=== PATIENT | female | born 1990 | race Caucasian/White ===

== ENCOUNTER 2023-11-23 01:39 | Inpatient (IN) ==
[2023-11-23] MEDS ORDERED: LIDOCAINE 1% LOCAL 20 ML VIAL INFIL PRN (02:23)
[2023-11-23 02:58] LABS: Hematocrit (blood only) 40.3 % (37.0-47.0); Hemoglobin 13.4 g/dl (12.0-16.0); Mean Corpuscular Hemoglobin 30.5 pg (25.0-34.0); Mean Corpuscular Hgb Conc 33.3 g/dL (32.0-36.0); Mean Corpuscular Volume 91.8 fL (80.0-100.0); Mean Platelet Volume 11.7 fL (9.4-12.4); Platelet Count 206 K/uL (130-400); RDW Coefficient of Variation 12.8 % (11.5-14.5); RDW Standard Deviation 42.6 fL (36.4-46.3); Red Blood Count 4.39 M/uL (4.20-5.40); White Blood Count 20.27 K/ul (4.8-10.8)
[2023-11-23] MEDS: LACTATED RINGER'S 1,000 ML IV PRN (03:01)
--- NOTE | 2023-11-23 03:15 | Anesthesiology Consultation ---
Date of Service November 23, 2023 Assessment & Plan Chart Review Chart Review: Acceptable Risk for Labor Epidural Consults Requested none History Height/Weight Height: 5 ft 5 in Weight: 92.079 kg Allergies Allergy/AdvReac Type Severity Reaction Status Date / Time No Known Allergies Allergy Verified 11/22/23 11:45 Medications Home Medications Medication Instructions Recorded Confirmed Last Taken acetone (urine) test (Ketone Urine #50 ea 09/28/23 11/22/23 Unknown Test strips) blood sugar diagnostic (OneTouch #150 ea 09/28/23 11/22/23 Unknown Verio test strips) vits no.124-ferrous fum 1 tab PO DAILY 11/23/23 11/23/23 Unknown 27 mg iron-folic acid 800 mcg tablet ( Vitamin) Active Medications Generic Name Dose Route Start Last Admin Trade Name Freq PRN Reason Stop Dose Admin Lactated Ringer's 1,000 mls @ 125 mls/hr 11/23/23 02:23 11/23/23 03:01 Lr IV 11/25/23 02:22 999 mls/hr .Q8H PRN Administration L&D Protocol Protocol Past Medical History Medical History (Updated 09/14/23 @ 13:52 by Nevaeh Fulton) History of chicken pox Past Family History Family History (Updated 04/04/23 @ 15:05 by Nevaeh Fulton) Grandmother (Maternal) Diabetes Hypertension Mother Hypercholesteremia Denies family history of Ovarian cancer Breast cancer Colorectal cancer Past Surgical History Surgical History S/P wisdom tooth extraction Social History Smoking Status: Never smoker Do You Dip or Chew Tobacco: No Hx Alcohol Use: No Hx Substance Use: No Physical Exam Vital Signs Last Vital Signs Temp 37.0 C 11/23/23 01:51 Pulse 80 11/23/23 02:02 Resp 18 11/23/23 01:51 BP 137/76 11/23/23 02:02 Testing Laboratory Results 11/23/23 02:31 11/23/23 02:53 POC Glucose 117 H
[2023-11-23] MEDS ORDERED: fentaNYL citrate PF 100 MCG/2 ML VIAL EPI PRN (03:16)
[2023-11-23] MEDS ORDERED: SODIUM CHLORIDE 0.9% PF INJ 10 ML VIAL EPI PRN (03:16)
[2023-11-23] MEDS ORDERED: ePHEDrine sulfate 50 MG/ML AMP IV PRN (03:16)
[2023-11-23] MEDS ORDERED: BUPIVACAINE 0.25% PF 30 ML VIAL EPI PRN (03:16)
[2023-11-23] MEDS ORDERED: NALBUPHINE HCL INJ 10 MG/ML AMP IV PRN (03:16)
[2023-11-23] MEDS ORDERED: diphenhydrAMINE 50 MG/ML VIAL IV PRN (03:16)
[2023-11-23] MEDS ORDERED: NALOXONE HCL 0.4 MG/1 ML VIAL/CARP IV PRN (03:16)
[2023-11-23] MEDS ORDERED: ROPIVACAINE 0.5% PF 5 MG/ML 20 ML VIAL EPI PRN (03:16)
[2023-11-23] MEDS ORDERED: NALOXONE HCL 1 MG in SODIUM CHLORIDE 0.9% 1,000 ML IV PRN (03:16)
[2023-11-23] MEDS ORDERED: LIDOCAINE 2% MPF LOCAL 5 ML VIAL EPI PRN (03:16)
[2023-11-23] MEDS: fentANYL 2 MCG/ML BUPIVacaine 0.125%-NSS 100ML BAG EPI PRN (03:45)
[2023-11-23] MEDS: LIDOCAINE 2%/EPINEPHRINE 1:200,000 20 ML PF EPI STA (03:46)
[2023-11-23] MEDS: SODIUM CHLORIDE 0.9% PF INJ 10 ML VIAL ONE (04:58)
[2023-11-23] MEDS: ePHEDrine sulfate 50 MG/ML AMP ONE (04:58)
[2023-11-23] MEDS: fentaNYL citrate PF 100 MCG/2 ML VIAL ONE (04:58)
[2023-11-23] MEDS: SODIUM CHLORIDE 0.9% PF INJ 10 ML VIAL EPI STA (04:59)
[2023-11-23] MEDS: BUPIVACAINE 0.25% PF 30 ML VIAL EPI STA (04:59)
[2023-11-23] MEDS: LIDOCAINE 2%/EPINEPHRINE 1:200,000 20 ML PF ONE (04:59)
[2023-11-23] MEDS: BUPIVACAINE 0.25% PF 30 ML VIAL ONE (04:59)
[2023-11-23] MEDS: fentANYL 2 MCG/ML BUPIVacaine 0.125%-NSS 100ML BAG ONE (04:59)
[2023-11-23] MEDS: fentaNYL citrate PF 100 MCG/2 ML VIAL EPI STA (04:59)
--- NOTE | 2023-11-23 06:26 | History & Physical Report ---
Date of Service November 23, 2023 Assessment & Plan (1) Normal labor and delivery: Plan: begin 2nd stage, anticipate . fhts categ 1. (2) Gestational diabetes: Plan: monitor bsgs. Admission and Anticipated Discharge Date Admission Date: November 23, 2023 History of Present Illness Chief Complaint: labor Primary Care Provider: ROSALINE Rawls 33yo at 40+wks ega presents to LD in active labor. No rom. +show. Cx exam 4cm and then received epidural and 8cm. Some pressure on and off. PNC c/b. GDM PNL rh pos, ri, gbs neg OBH: sab x 1 GYNH: nl paps no stds Allergies Allergy/AdvReac Type Severity Reaction Status Date / Time No Known Allergies Allergy Verified 11/22/23 11:45 Home Medications Medication Instructions Recorded Confirmed Type acetone (urine) test (Ketone Urine #50 ea 09/28/23 11/22/23 Rx Test strips) blood sugar diagnostic (OneTouch #150 ea 09/28/23 11/22/23 Rx Verio test strips) vits no.124-ferrous fum 1 tab PO DAILY 11/23/23 11/23/23 History 27 mg iron-folic acid 800 mcg tablet ( Vitamin) Patient History Medical History (Updated 11/23/23 @ 06:25 by Rosy Vallejo MD, FACOG) History of chicken pox Surgical History S/P wisdom tooth extraction Family History (Updated 04/04/23 @ 15:05 by Nevaeh Fulton) Grandmother (Maternal) Diabetes Hypertension Mother Hypercholesteremia Denies family history of Ovarian cancer Breast cancer Colorectal cancer Social History (Updated 04/04/23 @ 15:06 by Nevaeh Fulton) Smoking Status: Never smoker Do You Dip or Chew Tobacco: No; Hx Alcohol Use: No Hx Substance Use: No Preferred Language: Indonesian Communication Ability: Effective Recreation Facility Attendant Required: No Beliefs That Will Affect Care: None marital status: marital status details: Franko Juarez(33) [phone] Current Living Situation: Spouse Current Living Situation Comment: lives with spouse, 1 dog current occupational status: employed current occupation: [employer] Other Information That Helps Us Care for You: No Feels Safe at Home: Yes Safety Concerns: Feels Safe At This Time Assistive Devices: None Review of Systems as per Subjective / HPI Physical Exam Constitutional: WD/WN, vitals as above Gastrointestinal (Abdomen): soft gravid nt Musculoskeletal: no edema Neurologic: grossly normal Psychiatric: A+Ox3, euthymic affect Genitourinary: Manual OB Exam: + cervical dilation 10 cm, + cervical effacement 100%, + station + 2 and + amniotic fluid (arom) clear OB Exam Monitor Tracing: + external FHT monitor used, + external uterine monitor used (q2), + category I, + category II and + normal FHT variability Results & Data Vital Signs (Past 12 Hours) Vital Signs Temp Pulse Resp BP Pulse Ox 11/23/23 06:21 112 H 97 11/23/23 06:16 90 98 11/23/23 06:11 93 H 99 11/23/23 06:06 100 H 98 11/23/23 06:01 100 H 100 11/23/23 05:57 92 H 148/83 H 11/23/23 05:56 102 H 99 11/23/23 05:51 94 H 97 11/23/23 05:46 90 99 11/23/23 05:42 86 136/70 11/23/23 05:41 84 98 11/23/23 05:36 83 99 11/23/23 05:31 89 98 11/23/23 05:30 18 11/23/23 05:30 98.4 F 18 11/23/23 05:28 85 133/70 11/23/23 05:26 90 98 11/23/23 05:21 86 98 11/23/23 05:16 82 98 11/23/23 05:12 90 137/69 11/23/23 05:11 84 98 11/23/23 05:06 93 H 98 11/23/23 05:01 83 98 11/23/23 05:00 18 11/23/23 05:00 18 11/23/23 04:58 83 129/62 11/23/23 04:56 82 99 11/23/23 04:51 90 99 11/23/23 04:46 87 99 11/23/23 04:44 85 133/67 11/23/23 04:41 83 99 10/04/24 04:36 87 99 11/23/23 04:31 90 99 11/23/23 04:30 20 11/23/23 04:30 20 11/23/23 04:28 86 130/64 11/23/23 04:26 89 98 11/23/23 04:21 99 H 99 11/23/23 04:16 91 H 100 11/23/23 04:12 96 H 151/74 H 11/23/23 04:11 101 H 100 11/23/23 04:06 116 H 100 11/23/23 04:01 107 H 99 11/23/23 04:00 20 11/23/23 04:00 20 11/23/23 03:56 98 11/23/23 03:56 102 H 11/23/23 03:56 105 H 124/59 L 11/23/23 03:54 102 H 134/61 11/23/23 03:52 98 H 129/60 11/23/23 03:51 100 H 98 11/23/23 03:50 100 H 129/60 11/23/23 03:48 100 H 138/71 11/23/23 03:46 104 H 137/68 98 11/23/23 03:44 93 H 143/80 H 11/23/23 03:41 86 99 11/23/23 03:36 91 H 98 11/23/23 03:31 97 H 141/80 H 99 11/23/23 03:26 97 H 99 11/23/23 03:21 85 98 11/23/23 02:02 80 137/76 11/23/23 01:51 98.6 F 18 Coding Level of Care Code None Diagnoses Normal labor and delivery O80 Gestational diabetes O24.419
[2023-11-23] MEDS: OXYTOCIN 30 UNITS/NSS 30 UNITS/500 ML BAG IV PRN (06:55)
--- NOTE | 2023-11-23 07:04 | Delivery Summary ---
Vaginal Delivery Summary Date of Service November 23, 2023 Vaginal Delivery Summary The patient dilated to complete and pushed to deliver a viable male Apgars 8 and 8 via over intact perineum. Loose nuchal x 1 reduced. Mouth and nose bulb suctioned at perineum. Shoulders and body delivered with ease. was vigorous and crying at . Cord clamped at 30 seconds of life and to maternal abdomen where the cord was then doubly clamped and cut. Placenta delivered spontaneously and intact, three-vessel cord. Hemostasis achieved with dilute pitocin and uterine massage and drainage of the bladder for approximately 500 cc under sterile conditions. Cervix and sulci intact. QBL 66 cc. Vaginal and right labia laceration noted and reapproximated with 3-0 vicryl. Small separation of tissue to left of urethra not bleeding and not repaired. Mother and baby stable in recovery. [facility] Vaginal Delivery Charge Delivery Type Details:
[2023-11-23] MEDS ORDERED: OXYTOCIN 30 UNITS/NSS 30 UNITS/500 ML BAG IV PRN (07:21)
[2023-11-23] MEDS ORDERED: oxyCODONE/ACETAMINOPHEN 5mg/325mg TAB PO PRN (07:21)
[2023-11-23] MEDS ORDERED: HYDROCORTISONE ACETATE 25 MG SUPP PR PRN (07:21)
[2023-11-23] MEDS ORDERED: ACETAMINOPHEN 325 MG TAB PO PRN (07:21)
[2023-11-23] MEDS: OXYTOCIN 20 UNITS/LR 1,002 ML IV SCH (07:54)
[2023-11-23] MEDS: DOCUSATE SODIUM 100 MG CAP PO SCH (07:54)
[2023-11-23] MEDS: PRENATAL VITAMIN 1 TAB PO SCH (07:54)
[2023-11-23] MEDS: IBUPROFEN 600 MG TAB PO PRN (08:49)
[2023-11-23] MEDS: DIPHTHER/TETAN/PERTUS Vaccine (Tdap, Adol/Adult) 0.5mL IM ONE (08:49)
[2023-11-23] MEDS: BENZOCAINE 20% SPRY 85 APPLN/85 GM CAN EXT PRN (09:24)
--- NOTE | 2023-11-23 09:28 | Anesthesia Procedure Note ---
Date of Service November 23, 2023 Anesthesia Post Epidural Note Vital Signs Vital Signs: Temp Pulse Resp BP Pulse Ox 36.9 C 87 18 135/68 99 11/23/23 05:30 11/23/23 09:17 11/23/23 08:32 11/23/23 09:17 11/23/23 07:06 Pain Intensity Abdomen: Pain Intensity: 2 Lower Medial Perineal: Pain Intensity: 2 Notes Mental Status: alert / awake / arousable Nausea / Vomiting: adequately controlled Pain: adequately controlled Airway Patency, RR, SpO2: stable & adequate BP & HR: stable & adequate Hydration State: stable & adequate Neuraxial Anesthesia: was administered and sensory block is resolving Anesthetic Complications: no major complications apparent and Pt Satisfied with anesthetic care Epidural: Removed without complications and With tip intact
[2023-11-23 22:34] VITALS: O2SAT 99
--- NOTE | 2023-11-24 07:34 | Obstetrical Progress Note ---
Date of Service November 24, 2023 Assessment & Plan (1) Encounter for assessment: Plan: Patient is PPD 1 s/p and doing well - Eating well, voiding well, ambulating well - vitals reviewed and within normal limits - pain well controlled with analgesics - OOB, ambulation, diet progression as tolerated - Blood type: A+, GBS neg, rubella immune - Plan to discharge tomorrow - After discharge, 6 week follow up with OB Admission and Anticipated Discharge Date Admission Date: November 23, 2023 Supervising Physician Co-Signing Physician Notes Patient seen with resident and agree with the above findings and plan. Routine care Subjective 33 yo post- day 1 s/p Ambulation: ambulating normally Voiding: no voiding problems Passing Gas:: Yes Diet Tolerance:: regular diet Lochia:: Small Feeding Type:: bottle feeding Current Pain Level:2-3/10 Resting comfortably this AM in NAD. Denies MENDOZA, CP, SOB, N/V/D, LE pain/swelling. Physical Exam 2 Physical Exam: General: patient resting comfortably, NAD, non-toxic in appearance, answers questions appropriately. Skin: warm, dry, intact HEENT: NC/AT, anicteric sclera, conjunctiva without injection, moist mucus membranes. Heart: +S1/S2, regular, no m/r/g Lungs: equal air entry bilaterally, no rales/rhonchi/wheezes Abd: +BS, soft, NT/ND, uterine fundus firm at umbilicus Ext: warm, no clubbing/cyanosis or edema, Holden's neg. Neuro: nonfocal, speech intact, no facial droop, moving all extremities. Results & Data Vital Signs (Past 12 Hours) Vital Signs Temp Pulse Resp BP Pulse Ox O2 Del Method 11/24/23 04:00 36.4 C L 101 H 18 139/83 11/24/23 01:00 36.4 C L 93 H 18 132/80 11/23/23 20:00 36.9 C 97 H 18 127/82 99 Room Air Resident Activity Tracking Resident Involvement: Resident Care Provided Care Provided: OB Delivery (1) Encounter for assessment visit type: exam and care immediately after delivery Qualified Code(s): Z39.0 - Encounter for care and examination of mother immediately after delivery
[2023-11-24] MEDS: bisacodyL 5 MG TABEC PO SCH (20:08)
--- NOTE | 2023-11-24 20:24 | Communication Note ---
Date of Service: November 24, 2023 Patient requesting d/c kamaljit. Meeting d/c criteria. d/c to home.
[2023-11-24 20:30] VITALS: BP 130/79; RESP 18; TEMP 98.6
[2023-11-24 20:56] VITALS: PULSE 89
== END 2023-11-24 21:30 | disposition home or self-care (01) | DRG 807 ==
LOC: 4S1 01:39 → 4E2 10:00